=== PATIENT | female | born 1980 | race African-American/Black ===

== ENCOUNTER 2016-07-12 14:32 | Emergency (ER) | END 2016-07-12 17:30 | disposition home or self-care (01) | DX: S89.91XA Unspecified injury of right lower leg, initial encounter (principal); S49.90XA Unspecified injury of shoulder and upper arm, unspecified arm, initial encounter; S39.92XA Unspecified injury of lower back, initial encounter; I10 Essential (primary) hypertension; W18.39XA Other fall on same level, initial encounter; Y92.9 Unspecified place or not applicable | CPT/HCPCS: 73560; Z7502; Z7610 ==